=== PATIENT | male | born 1990 | race Caucasian/White ===

== ENCOUNTER 2017-05-15 17:07 | Emergency (ER) | payer BC, MEDICAID ==
[~2017-05-15] VITALS: Ht 167.6 cm; Wt 59.9 kg
[2017-05-15 17:11] VITALS: BP 154/92
== END 2017-05-15 21:30 | disposition left against medical advice (07) ==
LOC: ED 17:07
DX: T63.441A Toxic effect of venom of bees, accidental (unintentional), initial encounter (principal); T78.40XA Allergy, unspecified, initial encounter; Y92.89 Other specified places as the place of occurrence of the external cause

== ENCOUNTER 2017-05-31 01:43 | Emergency (ER) | payer BC, MEDICAID ==
[~2017-05-31] VITALS: Ht 167.6 cm; Wt 61.2 kg
[2017-05-31 02:52] VITALS: BP 122/79
== END 2017-05-31 02:52 | disposition home or self-care (01) ==
LOC: ED 01:43
DX: R07.89 Other chest pain (principal); R51 Headache; Z98.890 Other specified postprocedural states
CPT/HCPCS: J1885